=== PATIENT | female | born 1970 | race Caucasian/White ===

== ENCOUNTER 2016-12-14 14:58 | Emergency (ER) | payer OTHER ==
[~2016-12-14] VITALS: Ht 157.5 cm; Wt 125.6 kg
[2016-12-14 17:29] VITALS: BP 116/80
== END 2016-12-14 17:29 | disposition home or self-care (01) ==
LOC: ED 14:58
DX: M77.9 Enthesopathy, unspecified (principal); M71.22 Synovial cyst of popliteal space [Baker], left knee; E11.9 Type 2 diabetes mellitus without complications; J45.909 Unspecified asthma, uncomplicated

== ENCOUNTER 2016-12-23 09:34 | Emergency (ER) | payer OTHER ==
[~2016-12-23] VITALS: Ht 157.5 cm; Wt 124.7 kg
[2016-12-23 10:33] LABS: BASOPHIL % 0.1 % (0-2); PLATELET COUNT 188 x10^3mcL (130-400)
[2016-12-23 10:38] LABS: CALCIUM 7.7 mg/dL (8.5-10.1); CHLORIDE SERUM 103 mmol/L (98-107); GFR1 > 60 mL/min; GLUCOSE SERUM 176 mg/dL (74-106); POTASSIUM SERUM 3.9 mmol/L (3.5-5.1); RED CELL DISTRIBUTION WIDTH 16.6 % (11.5-14.5); SODIUM SERUM 142 mmol/L (136-145)
[2016-12-23 10:45] LABS: ALKALINE PHOSPHATASE 97 U/L (46-116); ALT/SGPT 19 U/L (14-59); AST/SGOT 15 U/L (15-37); BILIRUBIN TOTAL 0.3 mg/dL (0.20-1.00); CHOLESTEROL 196 mg/dL (<200); CHOLESTEROL/HDL RATIO 4.2; HDL CHOLESTEROL 47 mg/dL (40-60); LIPASE 86 IU/L (73-393); TRIGLYCERIDES 93 mg/dL (<150)
[2016-12-23 10:47] LABS: ALBUMIN 3.3 g/dL (3.4-5.0); TOTAL PROTEIN, SERUM 8.5 g/dL (6.4-8.2)
[2016-12-23 11:10] LABS: FREE T4 1.5 ng/dL (0.76-1.46); FREE THYROXINE INDEX 4.5 ug/dL (1.4-4.5); T4(THYROXINE) 12.5 ug/dL (4.7-13.3)
[2016-12-23 12:28] VITALS: BP 146/91
[2016-12-23 13:00] LABS: T3 TOTAL 1.18 ng/mL
== END 2016-12-23 12:28 | disposition home or self-care (01) ==
LOC: ED 09:34
PROVIDERS: Specialist
DX: K59.00 Constipation, unspecified (principal); J45.909 Unspecified asthma, uncomplicated; E66.01 Morbid (severe) obesity due to excess calories
CPT/HCPCS: 83880; 84439; J1170; J1885; J2405; J3010; J7030; Q0092

== ENCOUNTER 2017-03-30 17:58 | Emergency (ER) | payer OTHER ==
[~2017-03-30] VITALS: Ht 157.5 cm; Wt 127.0 kg
[2017-03-30 19:12] VITALS: BP 160/76
== END 2017-03-30 19:12 | disposition home or self-care (01) ==
LOC: ED 17:58
DX: K11.20 Sialoadenitis, unspecified (principal); J45.909 Unspecified asthma, uncomplicated; R73.03 Prediabetes
CPT/HCPCS: J0696

== ENCOUNTER 2017-05-30 14:25 | Emergency (ER) | payer OTHER ==
[~2017-05-30] VITALS: Ht 157.5 cm; Wt 127.5 kg
[2017-05-30 14:39] VITALS: Ht 157.5 cm; Wt 127.5 kg
[2017-05-30 16:27] VITALS: BP 157/95
== END 2017-05-30 16:27 | disposition home or self-care (01) ==
LOC: ED 14:25
DX: J06.9 Acute upper respiratory infection, unspecified (principal); J44.9 Chronic obstructive pulmonary disease, unspecified; J45.909 Unspecified asthma, uncomplicated

== ENCOUNTER 2017-08-08 10:31 | Emergency (ER) | payer OTHER ==
[~2017-08-08] VITALS: Ht 157.5 cm; Wt 127.0 kg
[2017-08-08 10:39] VITALS: Ht 157.5 cm; Wt 127.0 kg
[2017-08-08 11:17] VITALS: BP 151/95
== END 2017-08-08 11:35 | disposition home or self-care (01) ==
LOC: ED 10:31
DX: J45.901 Unspecified asthma with (acute) exacerbation (principal)
CPT/HCPCS: J7512; J7613; J7644

== ENCOUNTER 2017-09-16 14:20 | Emergency (ER) | payer OTHER ==
[~2017-09-16] VITALS: Ht 157.5 cm; Wt 122.5 kg
[2017-09-16 14:40] VITALS: Ht 157.5 cm; Wt 122.5 kg
[2017-09-16 15:16] LABS: BASOPHIL % 0.2 % (0-2); PLATELET COUNT 167 x10^3mcL (130-400)
[2017-09-16 15:17] LABS: RED CELL DISTRIBUTION WIDTH 17.6 % (11.5-14.5)
[2017-09-16 15:21] LABS: CALCIUM 6.4 mg/dL (8.5-10.1); CARBON DIOXIDE 30.8 mmol/L (21-32); CHLORIDE SERUM 101 mmol/L (98-107); GFR1 > 60 mL/min; GLUCOSE SERUM 137 mg/dL (74-106); POTASSIUM SERUM 3.5 mmol/L (3.5-5.1); SODIUM SERUM 138 mmol/L (136-145)
[2017-09-16 15:25] LABS: ALKALINE PHOSPHATASE 82 U/L (46-116); ALT/SGPT 19 U/L (14-59); AST/SGOT 18 U/L (15-37); BILIRUBIN TOTAL 0.2 mg/dL (0.20-1.00); TOTAL PROTEIN, SERUM 7.6 g/dL (6.4-8.2)
[2017-09-16 15:27] LABS: ALBUMIN 3.3 g/dL (3.4-5.0)
[2017-09-16 16:19] VITALS: BP 128/71
== END 2017-09-16 16:19 | disposition home or self-care (01) ==
LOC: ED 14:20
PROVIDERS: Emergency Medicine
DX: R03.0 Elevated blood-pressure reading, without diagnosis of hypertension (principal); J44.9 Chronic obstructive pulmonary disease, unspecified; J45.909 Unspecified asthma, uncomplicated
CPT/HCPCS: J2060; J2405; J7030; Q0092

== ENCOUNTER 2018-01-05 13:22 | Emergency (ER) | payer OTHER ==
[~2018-01-05] VITALS: Ht 157.5 cm; Wt 132.0 kg
[2018-01-05 13:28] VITALS: Ht 157.5 cm; Wt 132.0 kg
[2018-01-05 15:42] VITALS: BP 149/97
== END 2018-01-05 15:42 | disposition home or self-care (01) ==
LOC: ED 13:22
DX: M54.41 Lumbago with sciatica, right side (principal); J45.909 Unspecified asthma, uncomplicated; J44.9 Chronic obstructive pulmonary disease, unspecified
CPT/HCPCS: J3010; Q0162

== ENCOUNTER 2018-07-01 11:13 | Inpatient (IN) | payer OTHER ==
[~2018-07-01] VITALS: Ht 157.5 cm; Wt 132.4 kg
[2018-07-01 11:18] VITALS: Ht 157.5 cm; Wt 132.4 kg
[2018-07-01 12:05] LABS: PLATELET COUNT 170 x10^3mcL (130-400)
[2018-07-01 12:16] LABS: CALCIUM 6.2 mg/dL (8.5-10.1); CARBON DIOXIDE 31.6 mmol/L (21-32); CHLORIDE SERUM 102 mmol/L (98-107); CREATININE SERUM 0.9 mg/dL (0.6-1.0); GFR1 > 60 mL/min; GLUCOSE SERUM 108 mg/dL (74-106); POTASSIUM SERUM 3.8 mmol/L (3.5-5.1); SODIUM SERUM 139 mmol/L (136-145)
[2018-07-01 12:20] LABS: RED CELL DISTRIBUTION WIDTH 17.7 % (11.5-14.5)
[2018-07-01 12:24] LABS: ALKALINE PHOSPHATASE 95 U/L (46-116); ALT/SGPT 18 U/L (14-59); AST/SGOT 13 U/L (15-37); BILIRUBIN TOTAL 0.2 mg/dL (0.20-1.00); CHOLESTEROL 172 mg/dL (<200); CHOLESTEROL/HDL RATIO 4.9; HDL CHOLESTEROL 35 mg/dL (40-60); LIPASE 103 IU/L (73-393); TOTAL PROTEIN, SERUM 7.9 g/dL (6.4-8.2); TRIGLYCERIDES 109 mg/dL (<150)
[2018-07-01 12:28] LABS: FREE T4 0.99 ng/dL (0.76-1.46); FREE THYROXINE INDEX 2.7 ug/dL (1.4-4.5); T4(THYROXINE) 8.4 ug/dL (4.7-13.3)
[2018-07-01] MEDS ORDERED: HCTZ (18:39)
[2018-07-01 18:42] LABS: MAGNESIUM 1.7 mg/dL (1.8-2.4); PHOSPHOROUS 3.8 mg/dL (2.5-4.9)
[2018-07-01 18:46] LABS: microscopic required? NO
[2018-07-01 19:04] LABS: UA SPECIFIC GRAVITY 1.015 (1.005-1.035); urine erythrocyte NEGATIVE (NEGATIVE)
[2018-07-01 19:58] VITALS: BP 112/56
[2018-07-01 20:03] VITALS: BP 121/64
[2018-07-02 06:15] VITALS: BP 164/74
[2018-07-02 06:59] LABS: BASOPHIL % 0.3 % (0-2); PLATELET COUNT 168 x10^3mcL (130-400)
[2018-07-02 07:01] LABS: RED CELL DISTRIBUTION WIDTH 17.6 % (11.5-14.5)
[2018-07-02 07:42] LABS: CALCIUM 7.8 mg/dL (8.5-10.1); CARBON DIOXIDE 30.7 mmol/L (21-32); CHLORIDE SERUM 100 mmol/L (98-107); GFR1 > 60 mL/min; GLUCOSE SERUM 117 mg/dL (74-106); MAGNESIUM 1.9 mg/dL (1.8-2.4); PHOSPHOROUS 4.3 mg/dL (2.5-4.9); POTASSIUM SERUM 3.9 mmol/L (3.5-5.1); SODIUM SERUM 140 mmol/L (136-145)
[2018-07-02 09:12] LABS: T3 TOTAL 1.25 ng/mL
[2018-07-02 09:50] VITALS: BP 155/74
[2018-07-02 13:57] VITALS: BP 147/86
[2018-07-02 17:35] VITALS: BP 147/75
[2018-07-02 20:55] VITALS: BP 150/87
[2018-07-03 05:49] VITALS: BP 147/86
[2018-07-03 05:56] LABS: BASOPHIL % 0.4 % (0-2); PLATELET COUNT 149 x10^3mcL (130-400)
[2018-07-03 06:26] LABS: CALCIUM 6.9 mg/dL (8.5-10.1); CARBON DIOXIDE 32.9 mmol/L (21-32); CHLORIDE SERUM 102 mmol/L (98-107); CREATININE SERUM 0.9 mg/dL (0.6-1.0); GFR1 > 60 mL/min; GLUCOSE SERUM 125 mg/dL (74-106); MAGNESIUM 1.9 mg/dL (1.8-2.4); PHOSPHOROUS 4.1 mg/dL (2.5-4.9); POTASSIUM SERUM 3.5 mmol/L (3.5-5.1); SODIUM SERUM 142 mmol/L (136-145)
[2018-07-03 07:05] LABS: RED CELL DISTRIBUTION WIDTH 17.6 % (11.5-14.5)
[2018-07-03 08:30] VITALS: BP 148/86
[2018-07-03 11:01] VITALS: BP 148/86
[2018-07-03 11:54] VITALS: BP 135/75
== END 2018-07-03 13:30 | disposition home or self-care (01) | DRG 139 ==
LOC: ED 11:13 → DU 17:42
PROVIDERS: Specialist; ADMIT Internal Medicine
DX: J18.9 Pneumonia, unspecified organism (principal); J96.01 Acute respiratory failure with hypoxia; E87.3 Alkalosis; E44.0 Moderate protein-calorie malnutrition; J44.0 Chronic obstructive pulmonary disease with (acute) lower respiratory infection; E66.01 Morbid (severe) obesity due to excess calories; E11.65 Type 2 diabetes mellitus with hyperglycemia; E83.42 Hypomagnesemia; J45.901 Unspecified asthma with (acute) exacerbation; I10 Essential (primary) hypertension; E83.51 Hypocalcemia; F41.9 Anxiety disorder, unspecified; D64.9 Anemia, unspecified; G47.33 Obstructive sleep apnea (adult) (pediatric); E02 Subclinical iodine-deficiency hypothyroidism; Z68.43 Body mass index [BMI] 50.0-59.9, adult; Z79.84 Long term (current) use of oral hypoglycemic drugs; Z87.01 Personal history of pneumonia (recurrent); Z83.3 Family history of diabetes mellitus; Z82.5 Family history of asthma and other chronic lower respiratory diseases; Z82.49 Family history of ischemic heart disease and other diseases of the circulatory system
CPT/HCPCS: 36600; 82962; 83880; 84439; 85378; 87804; J1200; J1644; J1956; J7620; J7626; J8597; Q0092; Q9967

== ENCOUNTER 2019-02-15 14:32 | Emergency (ER) | payer OTHER ==
[~2019-02-15] VITALS: Ht 157.5 cm; Wt 139.3 kg
[~2019-02-15 14:32] MED LIST: HCTZ
[2019-02-15 14:47] VITALS: Ht 157.5 cm; Wt 139.3 kg
[2019-02-15 16:29] VITALS: BP 161/85
== END 2019-02-15 16:29 | disposition home or self-care (01) ==
LOC: ED 14:32
DX: S40.022A Contusion of left upper arm, initial encounter (principal); S80.02XA Contusion of left knee, initial encounter; R03.0 Elevated blood-pressure reading, without diagnosis of hypertension; J44.9 Chronic obstructive pulmonary disease, unspecified; Z88.8 Allergy status to other drugs, medicaments and biological substances; W10.8XXA Fall (on) (from) other stairs and steps, initial encounter; Y93.89 Activity, other specified; Y92.89 Other specified places as the place of occurrence of the external cause; Y99.8 Other external cause status